=== PATIENT | male | born 1960 | race Caucasian/White ===

== ENCOUNTER 2018-01-03 07:41 | Emergency (ER) | payer SELFPAY ==
[~2018-01-03] VITALS: Ht 175.3 cm; Wt 68.0 kg
--- NOTE | 2018-01-03 07:45 | NUR ---
BIBRA 89 C/O NAUSEA AND VOMITING. A/OX 4, BREATHING EVEN AND UNLABORED. NO SOB, NAD, VITALS STABLE. SAFETY AND COMFORT MEASURES IN PLACE. AWAITING MD ORDERS.
[2018-01-03 08:41] VITALS: BP 141/91
--- NOTE | 2018-01-03 08:42 | NUR ---
Patient discharged to home in stable condition. Written and verbal after care instructions given. Patient verbalizes understanding of instruction.
== END 2018-01-03 08:42 | disposition home or self-care (01) ==
LOC: ER 07:43
DX: K40.90 Unilateral inguinal hernia, without obstruction or gangrene, not specified as recurrent (principal)
CPT/HCPCS: 99283; A4606; Z7610